=== PATIENT | female | born 1965 | race Caucasian/White ===

== ENCOUNTER → 2023-07-30 07:46 | Outpatient (REF) | payer OTHER, SELFPAY | LOC: WDC 07:46 | PROVIDERS: ATTENDING PHYSICIAN Family Medicine | DX: Z12.31 Encounter for screening mammogram for malignant neoplasm of breast (principal) | CPT/HCPCS: 77063; 77067 ==

== ENCOUNTER → 2024-08-25 14:03 | Outpatient (REF) | payer OTHER, SELFPAY | LOC: WDC 14:03 | PROVIDERS: ATTENDING PHYSICIAN Family Medicine | DX: Z12.31 Encounter for screening mammogram for malignant neoplasm of breast (principal) | CPT/HCPCS: 77063; 77067 ==

== ENCOUNTER 2024-09-03 08:09 | Emergency (ER) | payer OTHER, SELFPAY ==
[2024-09-03 08:12] VITALS: BP 189/107
[2024-09-03 08:17] VITALS: BP 143/128
[2024-09-03 08:26] VITALS: BP 146/81; BMI 34.7
[2024-09-03] MEDS: NSS 1000 IV (08:30)
[2024-09-03] MEDS: ZOFRAN 4 MG IV (08:30)
--- NOTE | 2024-09-03 08:37 | ED.GENMED ---
History of Present Illness
General
Chief Complaint: Cardiac Symptoms
Source: patient
Exam Limitations: none
Time Seen by Provider: 09/03/24 08:15
History of Present Illness
History of Present Illness:
See MDM
Past History
Past History
ED Past Medical History: None
ED Past Surgical History: Gynecological and Other ([place] teeth)
Social History
Tobacco: Non-smoker
Alcohol: None
Drug: None
Personal:
Living: with family
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
Phy Exam
Physical Exam
Physical Exam:
See MDM
Course
Orders/Labs/Results
Orders:
Orders
09/03/24 08:11
EKG [Electrocardiogram (*1)] Urgent
Reason for Study: Other
Other Reason for Exam: heartburn
09/03/24 08:12
EKG- Treatment ONCE
09/03/24 08:28
0.9% Sodium Chloride 1000 ml [Nss] 1,000 ml IV BOLUS
Ondansetron Injectable [Zofran] 4 mg IV NOW STA
09/03/24 08:32
Complete Blood Count/With Diff Urgent
Comprehensive Metabolic Panel Urgent
Magnesium Urgent
Pro-BNP [NT-proBNP] Urgent
Troponin I Urgent
09/03/24 11:39
CR Chest - 2 Views Urgent
Comment:
Reason For Exam: chest pain
Abnormal Lab Results
09/03/24
08:32
MCH 33.6 H pg
(27.0-31.0)
Lymphocytes % 19.5 L %
(20.5-51.1)
Creatinine 0.5 L mg/dL
(0.6-1.0)
Glucose 131 H mg/dl
(70-99)
Magnesium 1.4 L mg/dl
(1.6-2.3)
Total Bilirubin 1.5 H mg/dl
(0.2-1.3)
AST 90 H U/L
(14-36)
ALT 77 H U/L
(0-35)
09/03/24 08:32
09/03/24 08:32
Vital Signs
Initial and Last Documented VS:
Initial Vital Signs
Temp Pulse Resp BP Pulse Ox
99.4 F 84 18 189/107 99
09/03/24 08:12 09/03/24 08:12 09/03/24 08:12 09/03/24 08:12 09/03/24 08:12
Last Documented Vital Signs
Temp Pulse Resp BP Pulse Ox
99.4 F 83 20 143/128 96
09/03/24 08:12 09/03/24 08:18 09/03/24 08:18 09/03/24 08:17 09/03/24 08:38
MDM/Problems Addressed
Differential Diagnosis Includes:
Note:
CHIEF COMPLAINT(S)
Chest pain and nausea.
HISTORY OF PRESENT ILLNESS
The patient is a 58-year-old female who presented with chest pain beginning last night. The pain started after she woke up feeling reflux. Subsequently, she vomited after attempting to take antacid medication (Tums) and consuming water. The patient
noted feeling sweaty, alternating between feeling hot and cold. She experienced mid-back pain and soreness in the left arm, which she attributed to her usual sleeping position. Additionally, the patient felt lightheaded but attempted to alleviate
symptoms by walking outside, which did not exacerbate her condition. Over the past week, she has experienced episodes of heart racing and insomnia. Currently, she reports persistent nausea, thirst, and difficulty keeping fluids down.
The patient mentioned significant stress due to recent job loss in December, which led to frequent anxiety attacks in the preceding months, although these have subsided recently. She has also not been sleeping well.
SOCIAL DETERMINANTS AFFECTING HEALTH
The patient has been under significant stress due to being laid off in December. She reported having severe anxiety attacks following the job loss.
PHYSICAL EXAM
General: Well appearing and non-toxic
HEENT: protecting airway
Neck: appears supple
CV: No evidence of cyanosis. Regular rate and rhythm
Resp: No accessory muscle use. Lungs clear
Abd: Non-distended
Extremities: No deformities
Neuro: alert
Psych: Normal affect
Skin: Intact
Nursing notes reviewed and vital signs reviewed.
PLAN
1. Order laboratory tests and a chest X-ray to evaluate the chest pain and ensure cardiac health is stable.
2. Administer anti-nausea medication (Zofran) and intravenous fluids to address dehydration.
3. Consider outpatient follow-up for further cardiac evaluation if all tests return normal, including stress test and echocardiogram.
4. Monitor and support hydration and symptom relief.
DIFFERENTIAL DIAGNOSIS
The Differential Diagnosis includes, in no particular order and is not limited to:
1. Gastroesophageal reflux disease
2. Anxiety-related chest pain
3. Acute coronary syndrome
4. Myocarditis
5. Pericarditis
6. Musculoskeletal pain
7. Pneumonia
8. Pulmonary embolism
9. Costochondritis
10. Peptic ulcer disease
EKG
My independent EKG interpretation is:
- Rhythm: Sinus rhythm
- [place]: Normal axis
- Heart Rate: 76 beats per minute
CARE-UPDATE
09/03/24 - 11:42
Troponin levels confirmed negative. Patient reports some improvement in symptoms. Mild elevation in LFTs and slightly low magnesium levels addressed. Discussed starting an [id number] magnesium supplement. Raised concerns regarding the patients
alcohol consumption, which the patient acknowledges. Plan to reassess LFT and magnesium levels in the outpatient setting.
Disposition:
SUMMARY OF ENCOUNTER
The patient, a 58-year-old female, presented to the emergency department with chest pain and nausea that began the previous night. Given the duration of symptoms and negative troponin levels, acute coronary syndrome was considered less likely. The
patient underwent initial evaluation and management, including administration of anti-nausea medication and intravenous fluids to address dehydration. An electrocardiogram and chest X-ray were performed, revealing sinus rhythm and clear lung malcolm,
respectively. The negative findings on troponin and chest X-ray suggested non-cardiac chest pain, potentially related to gastroesophageal reflux disease or anxiety-related chest pain.
REASSESSMENT
The patient reported feeling better upon reassessment.
PLAN
The plan includes outpatient follow-up with her primary care provider (PCP) for reassessment. A continuation of the cardiac workup is advised, including a stress test and echocardiogram.
INDEPENDENT REVIEW OF LABS AND INTERPRETATION OF TESTS
- My independent EKG interpretation is: Rhythm: Sinus rhythm, [place]: Normal axis, Heart Rate: 76 beats per minute.
- My independent review of the chest X-ray interpretation shows clear lung malcolm.
- Troponin levels confirmed negative.
FOLLOW-UP INSTRUCTIONS
The patient is advised to follow up with her primary care provider to reassess her condition and consider continuation of her cardiac workup, including a stress test and echocardiogram.
MEDICATION RECONCILIATION
- Ondansetron (Zofran) administered for nausea.
- Intravenous fluids provided for hydration.
- Recommended [id number] magnesium supplement discussed.
MEDICAL DECISION MAKING
- Complexity of Data Reviewed: Chronic conditions affecting care include gastroesophageal reflux disease and anxiety. The differential diagnosis considered includes gastroesophageal reflux disease, anxiety-related chest pain, acute coronary
syndrome, myocarditis, pericarditis, musculoskeletal pain, pneumonia, pulmonary embolism, costochondritis, and peptic ulcer disease.
- Data:
- Category 1: Chest X-ray was ordered and independently interpreted as showing clear lung malcolm. Troponin levels were reviewed and independently interpreted as negative. An EKG was performed and interpreted independently.
- Category 2: My independent review of EKG indicated sinus rhythm with a normal axis and heart rate of 76 beats per minute.
- Risk: Consideration of Admission/Observation: Escalation of care including admission/observation was considered due to the complexity and risk of the patients presenting complaint, exam findings, and underlying comorbidities. However, it was
ultimately determined that the patient is safe for outpatient management with close follow-up. Reasoning: Work-up is reassuring and does not reveal any acute life/organ-threatening processes, the patients symptoms are well-controlled upon
reevaluation, reexamination is reassuring, vitals are stable, and the patient is agreeable with discharge and reliable for follow-up.
DIAGNOSIS
- Gastroesophageal Reflux Disease (ICD-10: K21.9)
- Anxiety Disorder (ICD-10: F41.9)
- Nausea with Vomiting (ICD-10: R11.2)
*Pulse Oximetry
SaO2: 96
Oxygen Mode of Delivery: Room air
Patient hypoxic: no
*Critical Care Note
Total Time (30-74mins, 75-104mins- exclusive of procedures): Not Applicable
ED Attending Note
-
Portions of this chart may have been created with voice recognition software.� Occasional wrong word or��sound alike� substitutions may have occurred due to the inherent limitations of voice recognition software.
Discharge Plan
Departure
Patient Disposition: Home (Routine Discharge)
Date of Disposition: 09/03/24
Time of Disposition: 13:47
Patient with high blood pressure during this ER visit?: Yes
Discharge Problem:
Chest pain
Instructions: Chest Pain PCP Follow Up
Prescriptions:
No Action
No Current Medications
0
Referrals:
Olimpia Rm MD [Family Provider, [facility]]
Activity Restrictions/Additional Instructions:
Please return for any worsening symptoms.
You may return at any time if you have further concerns.
Please follow up with your doctor at the first available appointment, preferably this week.
Thank you for choosing [facility].
Interventions
Interventions:
*Risk Screen - Suicide Last Done: 09/03/24 08:13
Discharge Date and Time
Print Language: THAI
[2024-09-03 08:40] LABS: Hematocrit 41.0 % (37.0-47.0); Hemoglobin 14.2 g/dL (12.0-16.0); Mean Corp Hgb Conc. 34.6 g/dL (33.0-37.0); Mean Corpuscular Volume 97.2 fL (81.0-99.0); Nucleated Red Blood Cells % 0 %; Platelet Count 243 10^3/uL (130-400); Red Cell Dist. Width 12.7 % (11.5-14.5)
[2024-09-03 09:00] VITALS: BP 146/88
[2024-09-03 09:09] LABS: ALT (SGPT) 77 U/L (0-35); AST (SGOT) 90 U/L (14-36); Albumin 4.7 g/dl (3.5-5.0); Alkaline Phosphatase 86 U/L (38-126); Blood Urea Nitrogen 13 mg/dl (7-17); Calcium 9.6 mg/dl (8.4-10.2); Carbon Dioxide 26 mmol/L (22-30); Chloride 105 mmol/L (98-107); Estimated Creatinine Clearance 108 ml/min; Glucose 131 mg/dl (70-99); Magnesium 1.4 mg/dl (1.6-2.3); Potassium 3.8 mmol/L (3.5-5.1); Sodium 139 mmol/L (135-145); Total Protein 8.0 g/dl (6.3-8.2); eGFR > 60.00
[2024-09-03 09:22] LABS: Troponin I < 0.012 ng/ml
[2024-09-03 10:00] VITALS: BP 155/93
--- NOTE | 2024-09-03 14:09 | EDRN ---
Reviewed discharge instructions with patient. Verbalized understanding. Ambulated with steady gait to the lobby.
== END 2024-09-03 14:10 | disposition home or self-care (01) ==
LOC: EMR 08:09
PROVIDERS: EMERGENCY PHYSICIAN Student in an Organized Health Care Education/Training Program; FAMILY PHYSICIAN Family Medicine
DX: R07.9 Chest pain, unspecified (principal); E86.0 Dehydration; R11.0 Nausea
CPT/HCPCS: 99285; 96374; 96361; 71046; 80053; 83735; 83880; 84484; 85025; 93005

== ENCOUNTER → 2024-11-07 10:14 | Outpatient (REF) | payer OTHER, SELFPAY | LOC: OHS 10:14 | PROVIDERS: ATTENDING PHYSICIAN Nurse Practitioner Family | DX: Z23 Encounter for immunization (principal) | CPT/HCPCS: 36415; 86480; 86735; 86762; 86765; 86787 ==